=== PATIENT | male | born 1990 | race Caucasian/White ===

== ENCOUNTER 2017-11-11 10:57 | Emergency (ER) | payer BC, OTHER ==
[2017-11-11] MEDS ORDERED: Naproxen TAB* 250 MG PO ONE (11:16)
--- NOTE | 2017-11-11 11:16 | ED ---
Laceration/Wound HPI - HPI Summary HPI Summary: 27 male presents to ED with complaints of left index tip of finger being cut off with a knife when slicing scallions, by accident. that just occurred [employer]. Patient states it is oozing and he does have tip of finger that was cut off. Clean avulsion/amputation and states he does not think he cut the bone. No medication. Tetanus is UTD 2016. No blood thinners. No other medical problems or PMHx. Has FROM, no significant numbness/tingling, only at area amputation. Amputation area is described as "pea sized". - History of Current Complaint Stated Complaint: FINGER LAC Time Seen by Provider: 11/11/17 11:06 Hx Obtained From: Patient Mechanism of Injury: Sharp/Blunt Trauma Onset/Duration: Sudden Onset Aggravating: Movement Alleviating: Compression Timing: Constant Onset Severity: Moderate Current Severity: Moderate Pain Intensity: 7 Pain Scale Used: 0-10 Numeric Associated Signs & Symptoms: Pain Related Hx: Dominant Hand (Right) - Allergy/Home Medications Allergies/Adverse Reactions: Allergies Allergy/AdvReac Type Severity Reaction Status Date / Time No Known Allergies Allergy Verified 04/26/15 13:44 PMH/Surg Hx/FS Hx/Imm Hx Endocrine/Hematology History: Denies: Hx Anticoagulant Therapy, Hx Diabetes, Hx Thyroid Disease Cardiovascular History: Reports: Hx Hypertension Denies: Hx Pacemaker/ICD Respiratory History: Denies: Hx Asthma, Hx Chronic Obstructive Pulmonary Disease (COPD) GI History: Denies: Hx Ulcer History: Denies: Hx Renal Disease Sensory History: Denies: Hx Hearing Aid Neurological History: Denies: Hx Dementia, Hx Seizures Psychiatric History: Denies: Hx Panic Disorder, Hx Substance Abuse - Surgical History Surgery Procedure, Year, and Place: LT SHOULDER LABRAL REPAIR 2007, [place]ETH - Immunization History Date of Tetanus Vaccine: 2016 Immunizations Up to Date: Yes Infectious Disease History: No Infectious Disease History: Denies: Hx Clostridium Difficile, Hx Hepatitis, Hx Human Immunodeficiency Virus (HIV), Hx of Known/Suspected MRSA, Hx Shingles, Hx Tuberculosis, Traveled Outside the [place] in Last 30 Days - Family History Known Family History: Positive: None - Social History Alcohol Use: Rare Substance Use Type: Reports: None Smoking Status (MU): Never Smoked Tobacco Review of Systems Constitutional: Negative Cardiovascular: Negative Respiratory: Negative Positive: Myalgia Positive: Other - amputated fever left index finger Neurological: Negative All Other Systems Reviewed And Are Negative: Yes Physical Exam Triage Information Reviewed: Yes Vital Signs On Initial Exam: Initial Vitals Temp Pulse Resp BP Pulse Ox 96.9 F 93 20 167/89 98 11/11/17 10:57 11/11/17 10:57 11/11/17 10:57 11/11/17 10:57 11/11/17 10:57 elevated BP noted, patient diagnosed with HTN, in pain, just took medication, improved. Vital Signs Reviewed: Yes Appearance: Positive: Well-Appearing, No Pain Distress, Well-Nourished Skin: Positive: Warm, Skin Color Reflects Adequate Perfusion, Dry, Other - small 1 cm superficial avulsion/amputation of left tip of index finger with some nail involvement, oozing bleeding without concern for bone involvment. nail bed is intact. rest of skin exam normal. Negative: Cold, Numb, Cyanosis @ Head/Face: Positive: Normal Head/Face Inspection ENT: Positive: Hearing grossly normal Neck: Positive: Supple, Nontender Respiratory/Lung Sounds: Positive: Clear to Auscultation, Breath Sounds Present. Negative: Rales, Rhonchi, Wheezes Cardiovascular: Positive: Normal, RRR, Pulses are Symmetrical in both Upper and Lower Extremities - 2+ radial b/l. Negative: Murmur, Rub Musculoskeletal: Positive: Normal, Strength/ROM Intact, Pain @ - area of avulsion. Negative: Limited @, Interruption @, Edema Left, Edema Right Neurological: Positive: Normal, Sensory/Motor Intact, Alert, Oriented to Person Place, Time, NV Bundle Intact Distally, Normal Gait Procedures - Laceration/Wound Repair 1 Location: Other - left index finger Length, Depth and Shape: 1.cm superficial SQ avulsion/amputation left index finger tip Irrigated w/ Saline (ccs): 100 Laceration/Wound Explored: clean, no foreign body removed Sterile Dressing Applied?: Yes - xeroform, telfa, gauze, coban with pressure Diagnostics - Vital Signs Vital Signs Temp Pulse Resp BP Pulse Ox 11/11/17 10:57 96.9 F 93 20 167/89 98 - Laboratory Lab Statement: Any lab studies that have been ordered have been reviewed, and results considered in the medical decision making process. - Radiology left index Xray Interpretation: Positive (See Comments) - There is a soft tissue defect at the tip of the left index finger. No fracture or radiopaque foreign body is seen. Joint spaces appear maintained. Radiology Interpretation Completed By: Radiologist Laceration Repair Course/Dx - Course Course Of Treatment: appears to be suffering from superficial skin amputation/ avulsion of left index finger with some nail involvement. xray obtained and negative for any bony involvement. clean superficial. tetanus is up to luz elena 2016. given naproxen for pain. wound was soaked and irrigated. dressed with xeroform and pressure dressing. bleeding well controlled. follow up pcp. aware of worsening signs and symptoms such as infection. ortho referal only for complication as discussed with patient. keep clean and dry. RICE. change dressing in 2 days and re apply. continue OTC analgesic. - Differential Dx Differental Diagnoses: Avulsion - amputation, Laceration - Clinical Impression Provider Diagnoses: Traumatic amputation of fingertip, Avulsion of skin of index finger without complication Discharge - Discharge Plan Condition: Stable Disposition: HOME Patient Education Materials: Finger Amputation (ED) Referrals: Sally Bauman MD [Primary Care Provider] - Additional Instructions: Keep clean and dry. Soak and rinse after day 2. Keep covered. Change dressing. Ibuprofen as needed for pain and inflammation, Elevate, cool compresses. Any new or worsening symptoms please seek medical attention. Follow up with PCP.
--- NOTE | 2017-11-11 11:55 | RAD ---
INDICATION: Left index finger trauma. TECHNIQUE: 3 views of the left index finger were obtained. FINDINGS: There is a soft tissue defect at the tip of the left index finger. No fracture or radiopaque foreign body is seen. Joint spaces appear maintained. IMPRESSION: SOFT TISSUE INJURY.
[2017-11-11 13:05] VITALS: BP 157/100
== END 2017-11-11 13:04 | disposition home or self-care (01) ==
LOC: ED 10:57
DX: S68.111A Complete traumatic metacarpophalangeal amputation of left index finger, initial encounter (principal); W26.0XXA Contact with knife, initial encounter; Y92.9 Unspecified place or not applicable
CPT/HCPCS: 73140; 99282; A9270-GY